=== PATIENT | female | born 1955 | race Caucasian/White ===

== ENCOUNTER 2018-01-29 17:47 | Emergency (ER) | END 2018-01-29 22:39 | disposition home or self-care (01) ==

== ENCOUNTER 2019-03-30 10:27 | Emergency (ER) | payer OTHER ==
[~2019-03-30] VITALS: Ht 154.9 cm; Wt 60.0 kg
[~2019-03-30 10:27] MED LIST: IBUP-1542 PO; ORPH100T PO
[2019-03-30 10:37] VITALS: Ht 154.9 cm; Wt 60.0 kg
[2019-03-30] MEDS ORDERED: ACETAMINOPHEN 500 MG TAB PO STA (10:56)
[2019-03-30] MEDS ORDERED: IBUPROFEN 600 MG TAB PO ONE (11:00)
[2019-03-30 11:07] VITALS: BP 118/67; PULSE 80; RESP 16
== END 2019-03-30 11:07 | disposition home or self-care (01) ==
LOC: E/R 10:27
DX: R07.89 Other chest pain (principal); I10 Essential (primary) hypertension
CPT/HCPCS: 71045; Z7502; Z7610